=== PATIENT | female | born 1965 | race Caucasian/White ===

== ENCOUNTER → 2018-12-19 09:19 | Outpatient (CLI) | payer BC | END | disposition home or self-care (01) | LOC: D.US 09:19 | PROVIDERS: ATTEND Family Medicine | DX: E04.1 Nontoxic single thyroid nodule (principal) ==

== ENCOUNTER 2018-12-26 08:00 | Outpatient (CLI) | payer BC | END 2018-12-26 23:59 | disposition home or self-care (01) | LOC: D.MAMMO 08:00 | PROVIDERS: ATTEND Family Medicine | DX: Z90.12 Acquired absence of left breast and nipple (principal) ==

== ENCOUNTER → 2019-07-23 23:38 | Outpatient (CLI) | payer BC | END | disposition home or self-care (01) | LOC: D.MAMMO 15:00 | PROVIDERS: ATTEND Family Medicine | DX: R92.8 Other abnormal and inconclusive findings on diagnostic imaging of breast (principal) ==

== ENCOUNTER 2020-04-19 16:26 | Emergency (ER) | payer BC ==
[~2020-04-19] VITALS: Ht 152.4 cm; Wt 63.2 kg
[2020-04-19 16:31] VITALS: Ht 152.4 cm; Wt 63.2 kg
[2020-04-19] MEDS ORDERED: ERGOCALCIF50000 UNIT PO (16:33)
[2020-04-19 16:50] LABS: BASOPHILS 0.3 % (0-2); EOSINOPHILS 2.2 % (0-7); HEMATOCRIT 42.2 % (36.0-48.0); HEMOGLOBIN 13.9 g/dL (12-16); IMMATURE GRANULOCYTES 0.1 % (0-5); LYMPHOCYTE ABS# 1.88 10x3/uL (1.18-3.74); LYMPHOCYTES 27.1 % (15-50); MCH 30.3 pg (26.0-34.0); MCHC 32.9 g/dL (31.0-37.0); MCV 91.9 fL (80.0-100.0); MONOCYTES 11.1 % (2-11); NEUTROPHILS 59.2 % (40-80); PLATELET COUNT 287 10x3/uL (130-400); RBC 4.59 10x6/uL (4.00-5.40); RDW 12.4 % (11.5-14.5); WBC 6.9 10x3/uL (4.8-10.8)
[2020-04-19 17:01] LABS: CALC OSMOLALITY 271 mosm/kg (275-300); CALCIUM 9.6 mg/dL (8.5-10.1); CARBON DIOXIDE 27.1 mmol/L (21.0-32.0); CHLORIDE - SERUM 102 mmol/L (98-107); CREATININE - SERUM 1.1 mg/dL (0.6-1.3); GLUCOSE 110 mg/dL (74-106); INR 0.99 (0.85-1.17); POTASSIUM - SERUM 3.3 mmol/L (3.5-5.1); PROTIME 12.1 SECONDS (11.6-15.0); SODIUM 136 mmol/L (136-145); UREA NITROGEN 9 mg/dL (7-18); eGFR NON AFRICAN AMERICAN 55 mL/min (90-120)
[2020-04-19 17:02] LABS: APTT 31.5 SECONDS (22.8-39.4)
[2020-04-19 17:15] LABS: ALBUMIN 3.8 g/dL (3.4-5.0); ALKALINE PHOSPHATASE 112 U/L (30-120); ALT (SGPT) 31 U/L (10-68); BILIRUBIN - TOTAL 0.37 mg/dL (0.2-1.3); CREATINE KINASE 57 UL (21-215); MAGNESIUM - SERUM 2.3 mg/dL (1.8-2.4); PROTEIN - SERUM 8.2 g/dL (6.4-8.2); TROPONIN-I < 0.017 ng/mL (0.000-0.060)
[2020-04-19] MEDS ORDERED: VOLTAREN75 MG PO (20:01)
[2020-04-19] MEDS ORDERED: STERAPRED 5MG 65 M1 PO (20:01)
[2020-04-19] MEDS ORDERED: OMEPRAZOLE20 M1 PO (20:02)
[2020-04-19 20:15] VITALS: BP 123/67
== END 2020-04-19 20:16 | disposition home or self-care (01) ==
LOC: D.ER 16:26
PROVIDERS: Family Medicine
DX: M94.0 Chondrocostal junction syndrome [Tietze] (principal); R51.9 Headache, unspecified; R07.9 Chest pain, unspecified; E03.9 Hypothyroidism, unspecified

== ENCOUNTER 2020-07-06 18:00 | Outpatient (CLI) | payer BC ==
[2020-04-19 16:31] VITALS: BMI 27.2
[~2020-07-06 18:00] MED LIST: ERGOCALCIF50000 UNIT PO; OMEPRAZOLE20 M1 PO; STERAPRED 5MG 65 M1 PO; VOLTAREN75 MG PO
== END 2020-07-06 23:59 | disposition home or self-care (01) ==
LOC: D.MAMMO 18:00
PROVIDERS: ATTEND Family Medicine
DX: N64.4 Mastodynia (principal)